=== PATIENT | female | born 1945 | race African-American/Black ===

== ENCOUNTER 2017-07-18 09:24 | Inpatient (IN) | payer OTHER, MEDICARE ==
[~2017-07-18] VITALS: Ht 160 cm; Wt 78.7 kg
[~2017-07-18 09:24] MED LIST: BENZ1INJ2 PO; COUM1TAB PO; HYDR-3288 PO; LITH300T3 PO; MILKSUS PO; RISP3 PO
[2017-07-18] MEDS ORDERED: BUSP1TAB PO ×2 (10:08)
[2017-07-18] MEDS ORDERED: ATOR10TA15 PO ×2 (10:08)
[2017-07-18] MEDS ORDERED: ASPI81CH7 CHEW ×2 (10:09)
[2017-07-18 10:28] VITALS: BP 142/75; RESP 18; O2SAT 100
[2017-07-18 10:35] VITALS: PULSE 66
[2017-07-18] MEDS ORDERED: DO NOT ADM ANY ANTICOAGULANT DRUGS PRN (10:45)
[2017-07-18 10:55] VITALS: PULSE 84
[2017-07-18] MEDS ORDERED: CHLORHEXIDINE GLUCONATE 2 % 1 PACK (2 CLOTHS) TOPICAL PRN (11:00)
[2017-07-18] MEDS ORDERED: POVIDONE IODINE 5% (ANTISEPSIS KIT) 4 APPLICATIONS EACH NARE PRN (11:00)
[2017-07-18] MEDS ORDERED: ROPIVACAINE PERI-ARTICULAR INJECTION. P-ARTICULR SCH ×5 (11:00)
[2017-07-18] MEDS ORDERED: CHLORHEXIDINE GLUCONATE 4% SOLN 120 ML BTL TOPICAL SCH (11:00)
[2017-07-18] MEDS ORDERED: METOPROLOL TARTRATE 25 MG TAB PO PRN (11:00)
[2017-07-18] MEDS ORDERED: ceFAZolin 1,000 MG/NS 100 ML IV SCH ×2 (11:00)
[2017-07-18] MEDS ORDERED: SODIUM CHLORID 0.9% 500 ML IV PRN (11:00)
[2017-07-18] MEDS ORDERED: LACTATED RINGER'S 1000 ML IV PRN (11:00)
--- NOTE | 2017-07-18 20:50 | EKG ---
Date Performed: 07/18/2017 Time Performed: 11:51:32 PTAGE: 72 years EKG: SINUS BRADYCARDIA NONSPECIFIC T-WAVE ABNORMALITY Compared to previous tracing, sinus rate i s slower BORDERLINE ECG PREVIOUS TRACING : 02/07/2004 18.32 DOCTOR: Darrell Thomas Interpretating Date/Time 07/18/2017 20:48:27
[2017-07-24] MEDS ORDERED: CALTCHW5 PO (10:26)
[2017-07-24] MEDS ORDERED: MAPA500T13 PO (10:26)
[2017-07-24] MEDS ORDERED: MULTTAB67 PO (10:26)
[2017-07-24] MEDS ORDERED: BENZ0.5T PO (10:26)
[2017-07-24] MEDS ORDERED: OMEP20TA93 PO (10:29)
[2017-07-24] MEDS ORDERED: FAMO20TA2 PO (10:31)
[2017-07-24] MEDS ORDERED: COUM7.5T PO (10:34)
== END 2017-07-18 12:20 | disposition home or self-care (01) | DRG 554 ==
LOC: HSDI 09:24
PROVIDERS: ADMIT Orthopaedic Surgery Orthopaedic Surgery of the Spine; ATTEND Orthopaedic Surgery Orthopaedic Surgery of the Spine
DX: M17.11 Unilateral primary osteoarthritis, right knee (principal); I49.9 Cardiac arrhythmia, unspecified; Z53.8 Procedure and treatment not carried out for other reasons
CPT/HCPCS: 86850; 86900; 86901; 86920; 93005; 99211; G0463; J0735; J1885; J2795; J7120

== ENCOUNTER 2017-07-18 12:43 | Observation (INO) | payer OTHER ==
[~2017-07-18] VITALS: Ht 162.6 cm; Wt 80.0 kg
[~2017-07-18 12:43] MED LIST changes: +ASPI81CH7 CHEW; +ATOR10TA15 PO; +BUSP1TAB PO
[2017-07-18 13:31] VITALS: BP 135/78; PULSE 72; RESP 18; TEMP 98.5; O2SAT 99
[2017-07-18 14:14] LABS: AUTOMATED NEUTROPHIL # 5.9 TH/MM3 (1.8-7.7); BASOPHIL # 0.1 TH/MM3 (0-0.2); BASOPHIL % 0.8 % (0.0-2.0); EOSINOPHIL # 0.1 TH/MM3 (0-0.4); EOSINOPHIL % 1.5 % (0.0-4.0); HEMATOCRIT 40.2 % (35.0-46.0); HEMOGLOBIN 12.9 GM/DL (11.6-15.3); LYMPH % 21.6 % (9.0-44.0); LYMPHOCYTE # 1.8 TH/MM3 (1.0-4.8); MEAN CORPUSCULAR HGB CONC 32.2 % (32.0-36.0); MEAN PLATELET VOLUME 7.8 FL (7.0-11.0); MONO % 6.9 % (0.0-8.0); MONOCYTE # 0.6 TH/MM3 (0-0.9); NEUT % 69.2 % (16.0-70.0); PLATELET COUNT 300 TH/MM3 (150-450); RED BLOOD COUNT 4.61 MIL/MM3 (4.00-5.30); WHITE BLOOD COUNT 8.5 TH/MM3 (4.0-11.0)
[2017-07-18 14:29] LABS: BICARBONATE 23.8 MEQ/L (21.0-32.0); BLOOD UREA NITROGEN 13 MG/DL (7-18); CALCIUM 9.7 MG/DL (8.5-10.1); CHLORIDE 113 MEQ/L (98-107); CREATININE 0.77 MG/DL (0.50-1.00); GLOMERULAR FILTRATION RATE 89 ML/MIN (>89); GLUCOSE,RANDOM 99 MG/DL (74-106); SODIUM (NA) 143 MEQ/L (136-145)
[2017-07-18 14:33] LABS: TROPONIN I LESS THAN 0.02 NG/ML (0.02-0.05)
--- NOTE | 2017-07-18 14:49 | RADRPT ---
EXAM DATE/TIME: 07/18/2017 14:01 [place] COMPARISON: No previous studies available for comparison. INDICATIONS : Tachycardia. MEDICAL HISTORY : None. SURGICAL HISTORY : None. ENCOUNTER: Initial ACUITY: 2 days PAIN SCORE: 3/10 LOCATION: Left middle chest FINDINGS: PA and lateral views of the chest demonstrate the lungs to be symmetrically aerated without evidence of mass or infiltrate. There is some blunting of the posterior costophrenic angle on the lateral sugg esting a small left-sided posterior effusion. Heart size is normal. Osseous structures are intact wit h mild marginal spurring at multiple levels of the dorsal spine. CONCLUSION: 1. Possible small posterior effusion in the left hemithorax. Lungs are otherwise clear. 2. Heart size is normal. No failure. 3. Minimal degenerative spurring of the dorsal spine. Richardson Royal MD on July 18, 2017 at 14:44 Board Certified Radiologist. This report was verified electronically.
[2017-07-18 14:59] VITALS: BP 148/80; PULSE 74; RESP 18; O2SAT 97
--- NOTE | 2017-07-18 15:35 | PD ---
HPI Chief Complaint: Cardiac Complaint Time Seen by Provider: 14:47 Travel History International Travel<30 days: No Contact w/Intl Traveler<30days: No Traveled to known affect area: No History of Present Illness HPI The patient is a 72-year-old female who presents to the emergency department for possible arrhythmia including ventricular tachycardia that occurred while in same-day surgery. The patient was scheduled to undergo surgery by Dr. Tristan Quesada, for chronic knee pain. Apparently the patient underwent some type of arrhythmia while speak in the anesthesiology. According to notes the anesthesiologist thought the patient was having ventricular tachycardia. The patient states she was asymptomatic at that time she had no lightheadedness, dizziness, chest pain, palpitations, shortness of breath, nausea, vomiting, or presyncope. She denies any known history of cardiac arrhythmias including atrial fibrillation and atrial flutter. She does have a history of psychiatric problems, hypertension, and hyperlipidemia. The patient is currently asymptomatic. PFSH Past Medical History Arthritis: Yes Anxiety: Yes Depression: No Cancer: No Cardiovascular Problems: Yes High Cholesterol: Yes Diabetes: No Diminished Hearing: No Endocrine: No Genitourinary: No Hepatitis: No Hiatal Hernia: No Immune Disorder: No Musculoskeletal: Yes (ARTHRITIS) Neurologic: No Psychiatric: Yes (PARANOID SCHIZOPHRENIA) Reproductive: No Respiratory: No Schizophrenia: Yes Thyroid Disease: No Tetanus Vaccination: > 5 Years Influenza Vaccination: Yes PNEUMOCCOCAL Vaccine (Year): 3 ?: Not Menopausal: Yes Para: 2 Past Surgical History Abdominal Surgery: No AICD: No Cardiac Surgery: No Section: Yes Ear Surgery: No Endocrine Surgery: No Eye Surgery: No Genitourinary Surgery: No Gynecologic Surgery: Yes (C SECTION X3) Joint Replacement: Yes (LEFT KNEE right tkr) Oral Surgery: No Pacemaker: No Thoracic Surgery: No Other Surgery: Yes Social History Alcohol Use: No Tobacco Use: No Substance Use: No Allergies-Medications (Allergen,Severity, Reaction): Coded Allergies: No Known Allergies (Verified Allergy, Unknown, 07/18/17) Reported Meds & Prescriptions Reported Meds & Active Scripts Active Reported Aspirin Children's (Aspirin) 81 Mg Chew 81 Mg CHEW DAILY Buspirone (Buspirone HCl) 7.5 Mg Tab 7.5 Mg PO BID Atorvastatin (Atorvastatin Calcium) 10 Mg Tab 10 Mg PO HS Benztropine Mesylate 2 Mg/2 Ml Vial 2 Mg PO BID [place] (Hydrocodone-Acetaminophen) 7.5-325 mg Tab 1-2 Tab PO Q6H PRN [place] Carbonate 300 Mg Tab 300 Mg PO BID Risperdal (Risperidone) 3 Mg Tab 3 Mg PO Q12HR Review of Systems Except as stated in HPI: all other systems reviewed are Neg HENT: No: Lightheadedness Cardiovascular: Positive: Tachycardia, No: Chest Pain or Discomfort, Diaphoresis Gastrointestinal: No: Nausea, Vomiting, Abdominal Pain Musculoskeletal: No: Weakness Neurologic: No: Dizziness, Syncope Physical Exam Narrative GENERAL: Awake, alert, very pleasant 72-year-old female who appears her stated age and is in no acute respiratory distress. SKIN: Focused skin assessment warm/dry. HEAD: Atraumatic. Normocephalic. EYES: No injection or drainage. ENT: No nasal bleeding or discharge. Mucous membranes pink and moist. NECK: Trachea midline. No JVD. CARDIOVASCULAR: Regular rate and rhythm. No murmur appreciated. RESPIRATORY: No accessory muscle use. Clear to auscultation. Breath sounds equal bilaterally. GASTROINTESTINAL: Abdomen soft, non-tender, nondistended. Hepatic and splenic margins not palpable. MUSCULOSKELETAL: No obvious deformities. No clubbing. No cyanosis. No edema. Mild resting tremor of the left hand at rest. Fasciculations of the left quadriceps noted intermittently. NEUROLOGICAL: Awake and alert. No obvious cranial nerve deficits. Motor grossly within normal limits. Normal speech. Nonfocal. PSYCHIATRIC: Appropriate mood and affect; insight and judgment normal. Data Data Last Documented VS Vital Signs Date Time Temp Pulse Resp B/P (MAP) Pulse Ox O2 Delivery O2 Flow Rate FiO2 07/18/17 14:59 74 18 148/80 (102) 97 Room Air 07/18/17 13:31 98.5 Orders Orders Electrocardiogram (07/18/17 ) Complete Blood Count With Diff (07/18/17 13:34) Basic Metabolic Panel (Bmp) (07/18/17 13:34) Ckmb (Isoenzyme) Profile (07/18/17 13:34) Troponin I (07/18/17 13:34) Chest, Pa & Lat (07/18/17 13:34) CKMB (07/18/17 13:44) CKMB% (07/18/17 13:44) Magnesium (Mg) (07/18/17 15:04) [place] (Li) (07/18/17 15:04) Labs Laboratory Tests Test 07/18/17 13:44 White Blood Count 8.5 TH/MM3 Red Blood Count 4.61 MIL/MM3 Hemoglobin 12.9 GM/DL Hematocrit 40.2 % Mean Corpuscular Volume 87.0 FL Mean Corpuscular Hemoglobin 28.0 PG Mean Corpuscular Hemoglobin Concent 32.2 % Red Cell Distribution Width 16.0 % Platelet Count 300 TH/MM3 Mean Platelet Volume 7.8 FL Neutrophils (%) (Auto) 69.2 % Lymphocytes (%) (Auto) 21.6 % Monocytes (%) (Auto) 6.9 % Eosinophils (%) (Auto) 1.5 % Basophils (%) (Auto) 0.8 % Neutrophils # (Auto) 5.9 TH/MM3 Lymphocytes # (Auto) 1.8 TH/MM3 Monocytes # (Auto) 0.6 TH/MM3 Eosinophils # (Auto) 0.1 TH/MM3 Basophils # (Auto) 0.1 TH/MM3 CBC Comment DIFF FINAL Differential Comment Blood Urea Nitrogen 13 MG/DL Creatinine 0.77 MG/DL Random Glucose 99 MG/DL Calcium Level 9.7 MG/DL Sodium Level 143 MEQ/L Potassium Level 3.9 MEQ/L Chloride Level 113 MEQ/L Carbon Dioxide Level 23.8 MEQ/L Anion Gap 6 MEQ/L Estimat Glomerular Filtration Rate 89 ML/MIN Total Creatine Kinase 114 U/L Creatine Kinase MB 2.4 NG/ML Troponin I LESS THAN 0.02 NG/ML MDM Medical Decision Making Medical Screen Exam Complete: Yes Emergency Medical Condition: Yes Medical Record Reviewed: Yes Interpretation(s) EKG reveals normal sinus rhythm with a rate of 66. Nonspecific T-wave changes. Last Impressions Chest X-Ray 07/18/17 [id number] Signed Impressions: Service Date/Time: July 14:01 - CONCLUSION: 1. Possible small posterior effusion in the left hemithorax. Lungs are otherwise clear. 2. Heart size is normal. No failure. 3. Minimal degenerative spurring of the dorsal spine. Richardson Royal MD Laboratory Tests Test 07/18/17 13:44 White Blood Count 8.5 TH/MM3 Red Blood Count 4.61 MIL/MM3 Hemoglobin 12.9 GM/DL Hematocrit 40.2 % Mean Corpuscular Volume 87.0 FL Mean Corpuscular Hemoglobin 28.0 PG Mean Corpuscular Hemoglobin Concent 32.2 % Red Cell Distribution Width 16.0 % Platelet Count 300 TH/MM3 Mean Platelet Volume 7.8 FL Neutrophils (%) (Auto) 69.2 % Lymphocytes (%) (Auto) 21.6 % Monocytes (%) (Auto) 6.9 % Eosinophils (%) (Auto) 1.5 % Basophils (%) (Auto) 0.8 % Neutrophils # (Auto) 5.9 TH/MM3 Lymphocytes # (Auto) 1.8 TH/MM3 Monocytes # (Auto) 0.6 TH/MM3 Eosinophils # (Auto) 0.1 TH/MM3 Basophils # (Auto) 0.1 TH/MM3 CBC Comment DIFF FINAL Differential Comment Blood Urea Nitrogen 13 MG/DL Creatinine 0.77 MG/DL Random Glucose 99 MG/DL Calcium Level 9.7 MG/DL Sodium Level 143 MEQ/L Potassium Level 3.9 MEQ/L Chloride Level 113 MEQ/L Carbon Dioxide Level 23.8 MEQ/L Anion Gap 6 MEQ/L Estimat Glomerular Filtration Rate 89 ML/MIN Total Creatine Kinase 114 U/L Creatine Kinase MB 2.4 NG/ML Troponin I LESS THAN 0.02 NG/ML Differential Diagnosis Differential diagnosis includes atrial fibrillation with aberrancy, intermittent bundle branch block, atrial flutter, ventricular arrhythmia, ventricular tachycardia, reentry tachycardia, electrolyte abnormality. Narrative Course IV was established, labs are drawn and sent, and the patient was placed on cardiac telemetry monitoring and continuous pulse oximetry monitoring. EKG was ordered and interpreted. I reviewed the patient's rhythm strip from same-day surgery, the patient's rate appeared to vary between 80 and 130, was irregular with no visible P waves. May have been A. fib with aberrancy, I do not believe it was ventricular tachycardia. I had a discussion with Dr. Tristan Bhatia, after discussion was agreed the patient will be a 23 hour observation to the medical service and may benefit from cardiology evaluation as she will need medical clearance for future knee surgery. Electrolytes are unremarkable. Magnesium was added to the patient's original labs as well as a lithium level. I did discussion with the patient and family at bedside was comfortable with this plan of care. Physician Communication Physician Communication [facility] were paged for 23 hour observation. I discussed the patient with Dr. Harris who agrees with 23 hour observation. Diagnosis Primary Impression: Dysrhythmia Qualified Codes: I49.9 - Cardiac arrhythmia, unspecified Admitting Information Admitting Physician Requests: Observation Condition: Stable Jak Pappas MD Jul 18, 2017 15:35
[2017-07-18] MEDS ORDERED: SODIUM CHLORIDE 0.9% FLUSH 10 ML FLUSH IV FLUSH PRN (15:45)
[2017-07-18] MEDS ORDERED: NALOXONE HCL 0.4 MG/ML AMP IV PUSH PRN (15:45)
[2017-07-18] MEDS ORDERED: ACETAMINOPHEN/HYDROcodone 325 MG/7.5 MG TAB PO PRN (16:30)
--- NOTE | 2017-07-18 16:35 | HHI.HP ---
HPI Service [facility] Hospital[facility] Primary Care Physician No Primary Care Physician Admission Diagnosis Dysrhythmia A. fib with aberrancy versus ventricular tachycardia Diagnoses: Chief Complaint: Dysrhythmia Travel History International Travel<30 Days: No Contact w/Intl Traveler <30 Da: No Traveled to Known Affected Are: No History of Present Illness This is a 72yo female with a PMHX of HTN (off of BP meds x 5 years), HLD, OA s/p bilateral TKA, GERD and paranoid schizophrenia who presents to [facility] ED with complaints of possible vtach arrhythmia that occurred while patient was being prepped by anesthesia for revision left total knee replacement to be performed today by Dr. Quesada. According to the notes, anesthesiologist was concerned patient was having ventricular tachycardia. Patient denies any complaints including no lightheadedness, dizziness, presyncope, palpitations, diaphoresis, chest pain, dyspnea, nausea or vomiting. Patient denies any cardiac history. She does report an episode of nonradicular left sided chest tightness one month ago after she laid down to sleep that she attributes to reflux. She fell approximately 3 months ago resulting in a patellar for which she was scheduled for the revision surgery today. In the ED, EKG showed possible atrial fibrillation with aberrancy. She did have a HR of 123 while in the ED. She denies any complaints. Review of Systems Except as stated in HPI: all other systems reviewed are Neg Past Family Social History Past Medical History Hypertension, off BP meds x 5 years Dyslipidemia OA Paranoid schizophrenia GERD Past Surgical History Bilateral TKA C section x 3 Reported Medications Aspirin Children's (Aspirin) 81 Mg Chew 81 Mg CHEW DAILY Buspirone (Buspirone HCl) 7.5 Mg Tab 7.5 Mg PO BID Atorvastatin (Atorvastatin Calcium) 10 Mg Tab 10 Mg PO HS Benztropine Mesylate 2 Mg/2 Ml Vial 2 Mg PO BID [place] (Hydrocodone-Acetaminophen) 7.5-325 mg Tab 1-2 Tab PO Q6H PRN [place] Carbonate 300 Mg Tab 300 Mg PO BID Risperdal (Risperidone) 3 Mg Tab 3 Mg PO Q12HR Allergies: Coded Allergies: No Known Allergies (Verified Allergy, Unknown, 07/18/17) Active Ordered Medications Current Medications Medications (Trade) Dose Ordered Sig/Evelyn Route Start Time Stop Time Status Last Admin (NS Flush) 2 ml UNSCH PRN IV FLUSH 07/18/17 15:45 (NS Flush) 2 ml BID IV FLUSH 07/18/17 21:00 (Narcan Inj) 0.4 mg UNSCH PRN IV PUSH 07/18/17 15:45 Family History Mother, pancreatic cancer Patient did not know her father Social History She denies any tobacco use history. She reports occasional EtOH consumption of 1-2 beers/month. She denies any illicit drug use. She lives with her daughter. Physical Exam Vital Signs Vital Signs Date Time Temp Pulse Resp B/P (MAP) Pulse Ox O2 Delivery O2 Flow Rate FiO2 07/18/17 14:59 74 18 148/80 (102) 97 Room Air 07/18/17 14:55 19 07/18/17 13:31 98.5 72 18 135/78 (97) 99 Physical Exam GENERAL: This is a well-nourished, well-developed elderly female patient, in no apparent distress. Awake and alert. Daughter is at the bedside. Tremulous. SKIN: No rashes, ecchymoses or lesions. Cool and dry. HEAD: Atraumatic. Normocephalic. No temporal or scalp tenderness. EYES: Pupils equal round and reactive. Extraocular motions intact. No scleral icterus. No injection or drainage. ENT: Nose without bleeding or purulent drainage. Throat without erythema, tonsillar hypertrophy or exudate. Uvula midline. Airway patent. NECK: Trachea midline. No JVD or lymphadenopathy. Supple, nontender, no meningeal signs. CARDIOVASCULAR: Regular rate and rhythm without murmurs, gallops, or rubs. RESPIRATORY: Clear to auscultation. Breath sounds equal bilaterally. No wheezes , rales, or rhonchi. GASTROINTESTINAL: Abdomen soft, non-tender, nondistended. No hepato-splenomegaly , or palpable masses. No guarding. MUSCULOSKELETAL: Extremities without clubbing, cyanosis, or edema. No joint tenderness, effusion, or edema noted. No calf tenderness. NEUROLOGICAL: Awake and alert. Cranial nerves II through XII grossly intact. Motor and sensory grossly within normal limits. No focal neurologic finding appreciated. Normal speech. Laboratory Laboratory Tests Test 07/18/17 13:44 White Blood Count 8.5 Red Blood Count 4.61 Hemoglobin 12.9 Hematocrit 40.2 Mean Corpuscular Volume 87.0 Mean Corpuscular Hemoglobin 28.0 Mean Corpuscular Hemoglobin Concent 32.2 Red Cell Distribution Width 16.0 Platelet Count 300 Mean Platelet Volume 7.8 Neutrophils (%) (Auto) 69.2 Lymphocytes (%) (Auto) 21.6 Monocytes (%) (Auto) 6.9 Eosinophils (%) (Auto) 1.5 Basophils (%) (Auto) 0.8 Neutrophils # (Auto) 5.9 Lymphocytes # (Auto) 1.8 Monocytes # (Auto) 0.6 Eosinophils # (Auto) 0.1 Basophils # (Auto) 0.1 CBC Comment DIFF FINAL Differential Comment Blood Urea Nitrogen 13 Creatinine 0.77 Random Glucose 99 Calcium Level 9.7 Sodium Level 143 Potassium Level 3.9 Chloride Level 113 Carbon Dioxide Level 23.8 Anion Gap 6 Estimat Glomerular Filtration Rate 89 Total Creatine Kinase 114 Creatine Kinase MB 2.4 Troponin I LESS THAN 0.02 Result Diagram: 07/18/17 1344 07/18/17 1344 Imaging Last Impressions Chest X-Ray 07/18/17 1334 Signed Impressions: Service Date/Time: July 14:01 - CONCLUSION: 1. Possible small posterior effusion in the left hemithorax. Lungs are otherwise clear. 2. Heart size is normal. No failure. 3. Minimal degenerative spurring of the dorsal spine. MD Pedrito Shawi VTE Risk Assessment Caprini VTE Risk Assessment: Mod/High Risk (score >= 2) Caprini Risk Assessment Model Point Value = 1 Point Value = 2 Point Value = 3 Point Value = 5 Age 41-60 Minor surgery BMI > 25 kg/m2 Swollen legs Varicose veins or History of unexplained or recurrent spontaneous Oral contraceptives or hormone replacement Sepsis (< 1 month) Serious lung disease, including pneumonia (< 1 month) Abnormal pulmonary function Acute myocardial infarction Congestive heart failure (< 1 month) History of inflammatory bowel disease Medical patient at bed rest Age 61-74 Arthroscopic surgery Major open surgery (> 45 min) Laparoscopic surgery (> 45 min) Malignancy Confined to bed (> 72 hours) Immobilizing plaster cast Central venous access Age >= 75 History of VTE Family history of VTE Factor V Leiden Prothrombin [id number] Lupus anticoagulant Anticardiolipin antibodies Elevated serum homocysteine Heparin-induced thrombocytopenia Other congenital or acquired thrombophilia Stroke (< 1 month) Elective arthroplasty Hip, pelvis, or leg fracture Acute spinal cord injury (< 1 month) Prophylaxis Regimen Total Risk Factor Score Risk Level Prophylaxis Regimen 0-1 Low Early ambulation 2 Moderate Order ONE of the following: *Sequential Compression Device (SCD) *Heparin 5000 units SQ BID 3-4 Higher Order ONE of the following medications: *Heparin 5000 units SQ TID *Enoxaparin/Lovenox 40 mg SQ daily (WT < 150 kg, CrCl > 30 mL/min) *Enoxaparin/Lovenox 30 mg SQ daily (WT < 150 kg, CrCl > 10-29 mL/min) *Enoxaparin/Lovenox 30 mg SQ BID (WT < 150 kg, CrCl > 30 mL/min) AND/OR *Sequential Compression Device (SCD) 5 or more Highest Order ONE of the following medications: *Heparin 5000 units SQ TID (Preferred with Epidurals) *Enoxaparin/Lovenox 40 mg SQ daily (WT < 150 kg, CrCl > 30 mL/min) *Enoxaparin/Lovenox 30 mg SQ daily (WT < 150 kg, CrCl > 10-29 mL/min) *Enoxaparin/Lovenox 30 mg SQ BID (WT < 150 kg, CrCl > 30 mL/min) AND *Sequential Compression Device (SCD) Assessment and Plan Assessment and Plan 72yo female with a PMHX of HTN (off of BP meds x 5 years), HLD , OA s/p bilateral TKA, GERD and paranoid schizophrenia who presents to [facility] ED with complaints of possible vtach arrhythmia that occurred while patient was being prepped by anesthesia for revision left total knee replacement to be performed today by Dr. Quesada. Arrhythmia, concern for Vtach, patient asymptomatic Possible PAF -K level 3.9, initial troponin 0.02 -Consult cardiology, appreciate recommendations -obtain 2D echocardiogram -continuous cardiac monitoring -obtain mag level and TSH level Hypertension Patient has not been on antihypertensive meds in 5 yrs -Clonidine prn with parameters -monitor BP and will initiate tx if indicated Dyslipidemia -resume home statin therapy OA s/p bilateral TKA with recent fall on the left knee and subsequent left patellar fracture Patient scheduled for revision Left TKA today -fall precautions -PT eval/tx Schizophrenia -resume home meds -check [place] level DVT prophylaxis -bilateral SCD/HOLLIE hose Discussed Condition With patient, daughter, Dr. Steven Baez,Meredith AMEZQUITA Jul 18, 2017 16:35
[2017-07-18] MEDS ORDERED: cloNIDine HCL 0.1 MG TAB PO PRN (16:45)
[2017-07-18 17:18] LABS: MAGNESIUM 2.4 MG/DL (1.5-2.5)
[2017-07-18 18:22] VITALS: BP 132/61; PULSE 65; RESP 18; O2SAT 99
--- NOTE | 2017-07-18 18:47 | ECHRPT ---
Indication: ATRIAL FIB/FLUTTER CONCLUSIONS Normal left ventricular size. Moderate concentric left ventricular hypertrophy. The left atrial size is mildly dilated. The right atrial size is mildly dilated. No atrial level shunt is demonstrated by color flow Doppler interrogation. The left ventricular systolic function is normal with an estimated ejection fraction in the range of 60-65%. [id number] mitral valve regurgitation. Aortic valve sclerosis is present. There is mild to moderate tricuspid valve regurgitation. The estimated pulmonary arterial pressure is 28 mmHg. Mild pulmonary valve regurgitation. There is a small pericardial effusion present. BP: 148 / 80 HR: 74 Rhythm: Sinus MEASUREMENTS (Male / Female) Normal Values Technical Quality:Fair 2D ECHO LV Diastolic Diameter PLAX 4.2 cm 4.2 - 5.9 / 3.9 - 5.3 cm LV Systolic Diameter PLAX 2.5 cm IVS Diastolic Thickness 1.1 cm 0.6 - 1.0 / 0.6 - 0.9 cm LVPW Diastolic Thickness 1.1 cm 0.6 - 1.0 / 0.6 - 0.9 cm LV Relative Wall Thickness 0.5 RV Internal Dim ED PLAX 2.9 cm LVOT Diameter 2.3 cm Aortic Root Diameter 3.3 cm LA Systolic Diameter LX 3.6 cm 3.0 - 4.0 / 2.7 - 3.8 cm M-MODE AV Cusp Separation MM 2.4 cm DOPPLER AV Peak Velocity 123.0 cm/s AV Peak Gradient 6.1 mmHg AV Mean Gradient 3.0 mmHg AV Velocity Time Integral 21.8 cm LVOT Peak Velocity 102.0 cm/s LVOT Peak Gradient 4.2 mmHg LVOT Velocity Time Integral 20.3 cm AV Area Cont Eq vti 3.9 cm AV Area Cont Eq pk 3.4 cm Mitral E Point Velocity 61.7 cm/s Mitral A Point Velocity 48.9 cm/s Mitral E to A Ratio 1.3 LV E' Lateral Velocity 9.9 cm/s Mitral E to LV E' Lateral Ratio 6.2 LV E' Septal Velocity 6.2 cm/s Mitral E to LV E' Septal Ratio 9.9 TR Peak Velocity 211.0 cm/s TR Peak Gradient 17.8 mmHg Right Atrial Pressure 10.0 mmHg Pulmonary Artery Systolic Pressu 27.8 mmHg Right Ventricular Systolic Press 27.8 mmHg PV Peak Velocity 69.2 cm/s PV Peak Gradient 1.9 mmHg FINDINGS LEFT VENTRICLE Normal left ventricular size. Moderate concentric left ventricular hypertrophy. The left ventricular systolic function is normal with an estimated ejection fraction in the range of 60-65%. RIGHT VENTRICLE Normal right ventricular size and systolic function. LEFT ATRIUM The left atrial size is mildly dilated. RIGHT ATRIUM The right atrial size is mildly dilated. ATRIAL SEPTUM No atrial level shunt is demonstrated by color flow Doppler interrogation. AORTA The aortic root and proximal ascending aorta are normal in size on limited imaging. MITRAL VALVE [id number] mitral valve regurgitation. AORTIC VALVE Aortic valve sclerosis is present. TRICUSPID VALVE There is mild to moderate tricuspid valve regurgitation. The estimated pulmonary arterial pressure is 28 mmHg. PULMONARY VALVE Mild pulmonary valve regurgitation. VESSELS The inferior vena cava is normal in size. PERICARDIUM There is a small pericardial effusion present. Sandor Fowler MD, FACC (Electronically Signed) Final Date:18 July 2017 18:46
[2017-07-18 19:17] VITALS: BP 152/74; PULSE 66; RESP 18; TEMP 98.1; O2SAT 98
[2017-07-18 20:48] VITALS: BP 116/57; PULSE 78; RESP 16; TEMP 98; O2SAT 98
--- NOTE | 2017-07-18 20:50 | EKG ---
Date Performed: 07/18/2017 Time Performed: 13:48:08 PTAGE: 72 years EKG: Sinus rhythm NONSPECIFIC T-WAVE ABNORMALITY Compared to previous tracing, sinus rate is slightly faster BORDERLIN E ECG PREVIOUS TRACING : 07/18/2017 11.51 DOCTOR: Darrell Thomas Interpretating Date/Time 07/18/2017 20:48:45
[2017-07-18] MEDS ORDERED: ATORVASTATIN 10 MG TAB PO SCH (21:00)
[2017-07-18] MEDS: busPIRone HCL 5 MG TAB PO SCH (21:00)
[2017-07-18] MEDS: SODIUM CHLORIDE 0.9% FLUSH 10 ML FLUSH IV FLUSH SCH (21:07)
[2017-07-18] MEDS: risperiDONE 3 MG TAB PO SCH (22:50)
[2017-07-18] MEDS: BENZTROPINE MESYLATE 2 MG TAB PO SCH (22:50)
[2017-07-18] MEDS: LITHIUM CARBONATE 300 MG TAB PO SCH (22:51)
[2017-07-19] VITALS: BP 96/58; PULSE 69; RESP 17; TEMP 98.6; O2SAT 100
[2017-07-19 02:03] VITALS: PULSE 61
[2017-07-19 04:00] VITALS: BP 116/62; PULSE 74; RESP 17; TEMP 96.9; O2SAT 100
--- NOTE | 2017-07-19 08:40 | MB ---
cc: Mathieu Aguayo MD DATE: 07/18/2017 REASON FOR CONSULTATION: Evaluation of an arrhythmia. HISTORY OF PRESENT ILLNESS: This is a 72-year-old female who was due to have orthopedic surgery today and, on telemetry, had an arrhythmia. I have looked at it. This occurred at 10:45 a.m. It is a 10-beat run of accelerated idioventricular rhythm. The rate is about 80-90. She was asymptomatic. Surgery was canceled. She was brought over here. The patient had hypertension in the past and was on blood pressure meds. She has not required any blood pressure medicines and has been off medicines for 5 years. No known cardiac disease. She has acid reflux with intermittent symptoms from that which she has a hard time describing. Her daughter who is a nurse was at the bedside which was helpful in obtaining her history. The patient has a history of psychiatric disorder. I cannot get any clear history of angina from her. PAST MEDICAL HISTORY: Includes hypertension, dyslipidemia, arthritis, schizophrenia, acid reflux. PAST SURGICAL HISTORY: Includes bilateral TKA and C-sections. MEDICATIONS: List is charted and includes 1. [place] 300 mg b.i.d. 2. Aspirin. 3. BuSpar. 4. Atorvastatin. 5. Risperdal. ALLERGIES: NONE. FAMILY HISTORY: Her mom had pancreatic cancer. She does not know her father's history. SOCIAL HISTORY: She is a nonsmoker, only occasional alcohol. PHYSICAL EXAMINATION: GENERAL: Shows an overweight, pleasant female. She is awake and alert. VITAL SIGNS: Charted. HEENT: Unremarkable. NECK: No JVD or bruits. CHEST: Clear to auscultation. CARDIAC: S1, S2. Regular rate and rhythm. No murmurs, gallops. ABDOMEN: Soft, nontender, no masses or organomegaly. EXTREMITIES: No clubbing, cyanosis or edema. Peripheral pulses are intact. CARDIOLOGY STUDIES: Her echo shows moderate LVH, normal LV function, mildly dilated left atrium. CARDIOLOGY STUDIES: Her EKG demonstrates sinus rhythm. She has 2 tracings, 1 at 11:51 and 1 at 1348. She has some nonspecific lateral ST-T abnormality which would be consistent with her left ventricular hypertrophy. LABORATORY DATA: Troponins are negative. IMPRESSION: Accelerated idioventricular rhythm, most likely secondary to her left ventricular hypertrophy. She is asymptomatic. No specific treatment is required. We will check a nuclear stress test to make sure there is no ischemic basis for this arrhythmia so I will order a Lexiscan nuclear test tomorrow. I will follow up on a p.r.n. basis if the test is abnormal. Thank you for asking me to see this pleasant lady. MD WES Mancilla/ , 07:21 PM , 08:15 PM
[2017-07-19] MEDS ORDERED: PNEUMOCOCCAL POLYVALENT INJ 25 MCG/0.5 ML SYR IM ONE (09:00)
[2017-07-19] MEDS: busPIRone HCL 5 MG TAB PO SCH (09:00)
[2017-07-19] MEDS ORDERED: ASPIRIN 81 MG CHEW TAB CHEW SCH (09:00)
[2017-07-19] MEDS ORDERED: REGADENOSON INJ 0.4 MG/5 ML SYR ONE (11:11)
[2017-07-19] MEDS: BENZTROPINE MESYLATE 2 MG TAB PO SCH (12:22)
[2017-07-19] MEDS: LITHIUM CARBONATE 300 MG TAB PO SCH (12:23)
[2017-07-19] MEDS: risperiDONE 3 MG TAB PO SCH (12:24)
[2017-07-19] MEDS: SODIUM CHLORIDE 0.9% FLUSH 10 ML FLUSH IV FLUSH SCH (12:24)
--- NOTE | 2017-07-19 12:57 | RADRPT ---
EXAM DATE/TIME: 07/18/2017 23:27 [facility] COMPARISON: CHEST PA & LAT, July 18, 2017, 14:01. INDICATIONS : Coronary atherosclerosis. DOSE: 27.2 mCi Tc99m Myoview at stress. 8.2 mCi Tc99m Myoview at rest. 0.4 mg Lexiscan STRESS SYMPTOMS: None. EJECTION FRACTION: > 70% MEDICAL HISTORY : Hypertension. SURGICAL HISTORY : Total knee replacement, left. Total knee replacement, right. section. ENCOUNTER: Initial ACUITY: 1 day PAIN SCALE: 0/10 LOCATION: chest TECHNIQUE: The patient underwent pharmacologic stress with infusion of prescribed dose. Continuous ECG tracing was monitored during stress. Gated SPECT imaging was performed after stress and conventional SPECT i maging was performed at rest. The examination was performed on a SPECT/CT scanner, both attenuation and non-corrected datasets were reviewed. FINDINGS: DISTRIBUTION: The maximum perfused segment at stress is in the lateral wall. PERFUSION STUDY: There some variation in uptake between stress and rest images at the apical lateral wall which is wit hin 10-20% which is generally within excepted limits. A definite area of ischemia is not appreciated. GATED STUDY: There is intact wall motion and thickening without hypokinetic or dyskinetic segments. CONCLUSION: No definite areas of ischemia are seen. RISK CATEGORY: Low (<1% Annual Mortality Rate) Sergei Ferrari MD on July 19, 2017 at 12:50 Board Certified Radiologist. This report was verified electronically.
--- NOTE | 2017-07-19 13:28 | HHI.DCPOC ---
Discharge Care Plan Diagnosis: (1) Paranoid schizophrenia (2) Hyperlipidemia (3) Dysrhythmia (4) Osteoarthritis of right knee Goals to Promote Your Health * To prevent worsening of your condition and complications * To maintain your health at the optimal level Directions to Meet Your Goals Take your medications as prescribed Follow your dietary instruction Follow activity as directed Keep your appointments as scheduled Take your immunizations and boosters as scheduled If your symptoms worsen call your PCP, if no PCP go to Urgent Care Center or Emergency Room Smoking is Dangerous to Your Health. Avoid second hand smoke Call the 24-hour hour crisis hotline for domestic abuse at Ant Miller MD Jul 19, 2017 13:28
--- NOTE | 2017-07-19 13:40 | HHI.DS ---
Discharge Summary Admission Date Jul 18, 2017 at 15:40 Discharge Date: Jul 19, 2017 Admitting Diagnosis Dysrhythmia A. fib with aberrancy versus ventricular tachycardia (1) Osteoarthritis of right knee ICD Code: M17.9 - Osteoarthritis of right knee Diagnosis: Secondary Status: Acute (2) Accelerated idioventricular rhythm ICD Code: I44.2 - Atrioventricular block, complete Diagnosis: Principal Status: Resolved (3) Paranoid schizophrenia ICD Code: F20.0 - Paranoid schizophrenia Diagnosis: Secondary Status: Chronic (4) Hyperlipidemia ICD Code: E78.5 - Hyperlipidemia Diagnosis: Secondary Status: Chronic Procedures none Brief History - From Admission This is a 72yo female with a PMHX of HTN (off of BP meds x 5 years), HLD, OA s/p bilateral TKA, GERD and paranoid schizophrenia who presents to [facility] ED with complaints of possible vtach arrhythmia that occurred while patient was being prepped by anesthesia for revision left total knee replacement to be performed today by Dr. Quesada. According to the notes, anesthesiologist was concerned patient was having ventricular tachycardia. Patient denies any complaints including no lightheadedness, dizziness, presyncope, palpitations, diaphoresis, chest pain, dyspnea, nausea or vomiting. Patient denies any cardiac history. She does report an episode of nonradicular left sided chest tightness one month ago after she laid down to sleep that she attributes to reflux. She fell approximately 3 months ago resulting in a patellar for which she was scheduled for the revision surgery today. In the ED, EKG showed possible atrial fibrillation with aberrancy. She did have a HR of 123 while in the ED. She denies any complaints. CBC/BMP: 07/18/17 1344 07/18/17 1344 Significant Findings Laboratory Tests Test 07/18/17 13:44 07/18/17 18:22 Chloride Level 113 MEQ/L (98-107) Troponin I LESS THAN 0.02 NG/ML LESS THAN 0.02 NG/ML Thyroid Stimulating Hormone 3rd Gen 4.550 uIU/ML (0.358-3.740) Imaging Last Impressions Myocardial Perfusion Scan Nuc Med 07/19/17 0000 Signed Impressions: Service Date/Time: July 23:27 - CONCLUSION: No definite areas of ischemia are seen. RISK CATEGORY: Low (<1%% Annual Mortality Rate ) Sergei Ferrari MD Chest X-Ray 07/18/17 1334 Signed Impressions: Service Date/Time: July 14:01 - CONCLUSION: 1. Possible small posterior effusion in the left hemithorax. Lungs are otherwise clear. 2. Heart size is normal. No failure. 3. Minimal degenerative spurring of the dorsal spine. Richardson Royal MD PE at Discharge AAOx3 nad S1S2 RRR, no MRG abdomen soft, nt, nd no edema in lower extremities, no jvd Pt update on day of discharge The patient denies chest pain, palpitations or shortness of breath. Hospital Course The patient was placed on outpatient observation for monitoring. Monitor on telemetry without any further arrhythmias reported. The patient was seen in consultation by cardiology. also recommended a nuclear stress testing which was negative. Electrolytes were also obtained and were within normal range with magnesium of 2.4 and potassium 3.9. Will go with 20 mg of potassium today. Patient will be discharged to follow-up with his PCP and is cleared to have surgical procedure afterwards. Pt Condition on Discharge: Stable Discharge Disposition: Discharge Home Discharge Time: <= 30 minutes Discharge Instructions DIET: Follow Instructions for: Heart Healthy Diet Activities you can perform: Regular-No Restrictions Follow up Referrals: PCP Follow-up - 2 Weeks Continued Medications: Aspirin (Aspirin Children's) 81 Mg Chew 81 MG CHEW DAILY, TAB 0 Refills Atorvastatin (Atorvastatin) 10 Mg Tab 10 MG PO HS for Cholesterol Management, #30 TAB 0 Refills Benztropine Mesylate (Benztropine Mesylate) 2 Mg/2 Ml Vial 2 MG PO BID Buspirone (Buspirone) 7.5 Mg Tab 7.5 MG PO BID for Anxiety, TAB 0 Refills Hydrocodone-Acetaminophen ([place]) 7.5-325 mg Tab 1-2 TAB PO Q6H PRN for PAIN, TAB 0 Refills [place] Carbonate ([place] Carbonate) 300 Mg Tab 300 MG PO BID, TAB 0 Refills Risperidone (Risperdal) 3 Mg Tab 3 MG PO Q12HR, #60 TAB 0 Refills Ant Miller MD Jul 19, 2017 13:40
[2017-07-19] MEDS ORDERED: POTASSIUM CHLORIDE 20 MEQ CONTROLLED RELEASE TAB PO ONE (14:00)
[2017-07-24] MEDS ORDERED: BENZ0.5T PO (10:26)
[2017-07-24] MEDS ORDERED: CALTCHW5 PO (10:26)
[2017-07-24] MEDS ORDERED: MULTTAB67 PO (10:26)
[2017-07-24] MEDS ORDERED: MAPA500T13 PO (10:26)
[2017-07-24] MEDS ORDERED: OMEP20TA93 PO (10:29)
[2017-07-24] MEDS ORDERED: FAMO20TA2 PO (10:31)
[2017-07-24] MEDS ORDERED: COUM7.5T PO (10:34)
== END 2017-07-19 15:10 | disposition home or self-care (01) ==
LOC: NEPE 12:43 → NEDA 15:40 → NEPGCP 18:21
PROVIDERS: ADMIT Hospitalist; ATTEND Hospitalist
DX: I49.9 Cardiac arrhythmia, unspecified (principal); M17.11 Unilateral primary osteoarthritis, right knee; F20.0 Paranoid schizophrenia; E78.5 Hyperlipidemia, unspecified; R94.31 Abnormal electrocardiogram [ECG] [EKG]; I11.9 Hypertensive heart disease without heart failure; I51.7 Cardiomegaly; K21.9 Gastro-esophageal reflux disease without esophagitis; Z23 Encounter for immunization; Z53.8 Procedure and treatment not carried out for other reasons
CPT/HCPCS: 71046; 78452; 80048; 80178; 82550; 82552; 83735; 84443; 84484; 85025; 90732; 93005; 93017; 93306; 97162; 99285; A9502; G0009; G0378; G8987; G8988; J2785; 86850; 86900; 86901; 86920; 90471; 99211; G0463; J0735; J1885; J2795; J7120

== ENCOUNTER 2017-07-25 11:23 | Inpatient (IN) | payer OTHER, MEDICARE ==
[~2017-07-25] VITALS: Ht 161.3 cm; Wt 76.7 kg
[~2017-07-25 11:23] MED LIST changes: +BENZ0.5T PO; -BENZ1INJ2 PO; -BUSP1TAB PO; +CALTCHW5 PO; -COUM1TAB PO; +COUM7.5T PO; +DEXAMETHASONE SOD PHOS 4 MG/ML VIAL IV ONE; +FAMO20TA2 PO; +GLYCOPYRROLATE 1 MG/5 ML SYRINGE IV PUSH ONE; -HYDR-3288 PO; +KETOROLAC TROMETHAMINE 30 MG/ML (IVP) VIAL IV PUSH ONE; +LACTATED RINGER'S 1000 ML INJ 1,000 ML IV ONE; +LIDOCAINE HCL 1% PF 5 ML SYRINGE OTHER ONE; +MAPA500T13 PO; -MILKSUS PO; +MULTTAB67 PO; +NEOSTIGMINE 5 MG/5 ML SYRINGE IV PUSH ONE; +ONDANSETRON HCL 4 MG/2 ML VIAL IV ONE; +PROPOFOL 200 MG/20 ML AMP IV ONE; +ROCURONIUM INJ 50 MG/5 ML SYRINGE IV PUSH ONE; +ePHEDrine/NS 25 MG/5 ML SYRINGE IV ONE
[2017-07-25] MEDS ORDERED: CEFAZOLIN INJ 2,000 MG in SODIUM CHLORIDE 0.9% INJ 100 ML IV SCH (11:45)
[2017-07-25] MEDS ORDERED: VANCOMYCIN 1000 MG/NS 250 ML (for <70 kg) IV SCH ×2 (11:45)
[2017-07-25] MEDS ORDERED: CHLORHEXIDINE GLUCONATE 4% SOLN 120 ML BTL TOPICAL SCH (11:45)
[2017-07-25] MEDS ORDERED: ceFAZolin 2 GM/DEX PREMIX 50 ML IV SCH (12:00)
[2017-07-25] MEDS ORDERED: ROPIVACAINE PERI-ARTICULAR INJECTION. P-ARTICULR SCH ×5 (12:00)
[2017-07-25] MEDS ORDERED: POVIDONE IODINE 5% (ANTISEPSIS KIT) 4 APPLICATIONS EACH NARE PRN (12:15)
[2017-07-25] MEDS ORDERED: METOPROLOL TARTRATE 25 MG TAB PO PRN (12:15)
[2017-07-25] MEDS ORDERED: LACTATED RINGER'S 1000 ML IV PRN (12:15)
[2017-07-25] MEDS ORDERED: CHLORHEXIDINE GLUCONATE 2 % 1 PACK (2 CLOTHS) TOPICAL PRN (12:15)
[2017-07-25] MEDS ORDERED: SODIUM CHLORID 0.9% 500 ML IV PRN (12:15)
[2017-07-25 13:05] VITALS: PULSE 66
[2017-07-25] MEDS ORDERED: GENTAMICIN SULFATE 80 MG/2 ML VIAL ONE ×3 (13:12→16:12)
[2017-07-25] MEDS ORDERED: FAMOTIDINE 20 MG/2 ML VIAL ONE (13:24)
[2017-07-25] MEDS ORDERED: BUPIVACAINE LIPOSOME PF 1.3% 20 ML VIAL ONE (13:58)
[2017-07-25] MEDS ORDERED: ACETAMINOPHEN 1000 MG/100 ML 100 ML IV ONE ×2 (13:59→15:28)
[2017-07-25] MEDS ORDERED: FAMOTIDINE 20 MG/2 ML VIAL IV ONE (14:30)
[2017-07-25] MEDS ORDERED: MIDAZOLAM HCL 2 MG/2 ML VIAL IV ONE (14:30)
[2017-07-25] MEDS ORDERED: SUGAMMADEX SODIUM 200 MG/2 ML VIAL IV PUSH ONE (17:05)
--- NOTE | 2017-07-25 17:20 | HHI.PR ---
Immediate Post Op Note Procedure Date: Jul 25, 2017 Pre Op Diagnosis: L Failed TKR Post Op Diagnosis: Same Surgeon: Tristan Quesada MD Public Health Technologist(s): Staff Procedure: L Rev TKR Complications: None Estimated blood loss: < 20cc Anesthesia: General, Regional Block, Local Drains: Hemovac Tourniquet time (min at mmHg) 26 min at 250 mmHg Patient to: PACU Patient Condition: Good Implant/Devices: SEE IMPLANT LOG (if applicable) Date/Time of Procedure: SEE SURGICAL CARE RECORD Tristan Quesada MD Jul 25, 2017 17:20
[2017-07-25] MEDS ORDERED: WALKER WHEELS/F1 MIS (17:28)
[2017-07-25] MEDS ORDERED: ACETAMINOPHEN/HYDROcodone 325 MG/5 MG TAB PO PRN (17:30)
[2017-07-25] MEDS ORDERED: FAMOTIDINE 20 MG TAB PO PRN (17:30)
[2017-07-25] MEDS ORDERED: Post-op Orders (for Pharmacy) XX ONE (17:30)
[2017-07-25] MEDS ORDERED: ONDANSETRON HCL 4 MG/2 ML VIAL IVP PRN (17:30)
[2017-07-25] MEDS ORDERED: ZOLPIDEM TARTRATE 5 MG TAB PO PRN (17:30)
--- NOTE | 2017-07-25 18:16 | MP ---
cc: Tristan Quesada MD, Albert W MD DATE OF OPERATION: 07/25/2017 PREOPERATIVE DIAGNOSES: Left failed total knee arthroplasty. POSTOPERATIVE DIAGNOSIS: Left failed total knee arthroplasty. PROCEDURE PERFORMED: Left revision total knee arthroplasty. SURGEON: Tristan Quesada MD ASSISTANT BRANCH MANAGER: Staff. ANESTHESIA: General, regional adductor canal block, intraarticular regional block. DRAINS: One. TOURNIQUET TIME: 26 minutes at 250 mmHg. COMPLICATIONS: None. PROCEDURE IN DETAIL: The patient was brought into the operating room and had satisfactory anesthesia by the Department of Anesthesia. Left lower extremity was prepped and draped in usual sterile manner. The extremity was exsanguinated by elevation and tourniquet inflated to 250 mmHg. Anterior scar tissue was surgically excised. Paramedian exposure was made. Capsulotomy was performed. The patient was found to have a failed polyethylene plastic component. The patient did have a traumatic injury to the knee, which certainly would explain why the patient had a failure of her polyethylene plastic. The patient was found to have no evidence of any wear involving the metal. There was no metal debris within to the knee joint itself. A synovectomy was performed. Soft tissues were released. The clipping mechanism was removed from the polyethylene plastic. The plastic was removed without difficulty. Trial reduction was made with the 14 and was found to be stable and satisfactory. The knee was then irrigated with local anesthesia provided by the Department of Pharmacy. The knee was irrigated with 3000 mL of sterile saline antibiotic solution. A 14 x 71 polyethylene plastic " lipped" was inserted. All soft tissue interposition was removed. Appropriate locking mechanism was used to lock the polyethylene plastic to the tibial tray. Tourniquet was deflated. All bleeders were then coagulated. The wound was again irrigated with copious amounts of irrigation solution. The wound was closed over an 1/8" Hemovac drain. The wound was closed in a routine manner. The extensor mechanism and capsule were repaired with multiple interrupted #2 nylon sutures. Subcutaneous layers with 0 Vicryl and 2-0 Vicryl, skin was approximated with running subcuticular 2-0 nylon suture. The instrument, sponge and sharp count was correct at the end of the operation. The patient tolerated the procedure well and went to the recovery room in stable and satisfactory condition. MD AIMEE StarrG/SA/ , 05:15 PM , 05:[address] [facility]
[2017-07-25] MEDS ORDERED: *ONDANSETRON 4 MG VIAL PERIprocedural Use ONLY ONE (18:19)
--- NOTE | 2017-07-25 18:27 | RADRPT ---
EXAM DATE/TIME: 07/25/2017 18:49 [facility] COMPARISON: No previous studies available for comparison. INDICATIONS : Post op total left knee. MEDICAL HISTORY : None. SURGICAL HISTORY : Left total knee ENCOUNTER: Initial ACUITY: 1 day PAIN SCORE: 0/10 LOCATION: Left knee FINDINGS: Left total knee arthroplasty is noted. Hardware appears intact. Alignment is anatomic. A surgical eyal in is present. In murali are noted ventrally. CONCLUSION: Satisfactory postop appearance Sergei Alfred MD on July 25, 2017 at 18:25 Board Certified Radiologist. This report was verified electronically.
[2017-07-25] MEDS: LACTATED RINGER'S 1000 ML INJ 1,000 ML IV SCH (19:00)
[2017-07-25] MEDS ORDERED: MORPHINE SULFATE 4 MG/ML INJ IV PRN (19:15)
[2017-07-25] MEDS ORDERED: DO NOT ADM ANY ANTICOAGULANT DRUGS PRN (19:15)
[2017-07-25 20:00] VITALS: BP 138/75; PULSE 72; RESP 18; TEMP 97.7; O2SAT 98
[2017-07-25] MEDS: risperiDONE 3 MG TAB PO SCH (23:05)
[2017-07-25] MEDS: LITHIUM CARBONATE 300 MG TAB PO SCH (23:06)
[2017-07-25] MEDS: ATORVASTATIN 10 MG TAB PO SCH (23:06)
[2017-07-25] MEDS: BENZTROPINE MESYLATE 1 MG TAB PO SCH (23:06)
[2017-07-25] MEDS: ACETAMINOPHEN/HYDROcodone 325 MG/5 MG TAB PO PRN (23:07)
[2017-07-26] VITALS: BP 131/71; PULSE 82; RESP 18; TEMP 98; O2SAT 96
[2017-07-26 04:00] VITALS: BP 110/65; PULSE 90; RESP 18; TEMP 98.1; O2SAT 95
[2017-07-26 05:08] LABS: INTERNATIONAL NORMALIZED RATIO 1.1 RATIO; PROTHROMBIN TIME - PATIENT 11.6 SEC (9.8-11.6)
[2017-07-26 05:10] LABS: BASOPHIL % 0.1 % (0.0-2.0); HEMATOCRIT 33.2 % (35.0-46.0); HEMOGLOBIN 10.6 GM/DL (11.6-15.3); LYMPH % 5.8 % (9.0-44.0); LYMPHOCYTE # 0.5 TH/MM3 (1.0-4.8); MEAN CORPUSCULAR HEMOGLOBIN 27.5 PG (27.0-34.0); MEAN CORPUSCULAR HGB CONC 31.9 % (32.0-36.0); MEAN PLATELET VOLUME 7.9 FL (7.0-11.0); MONOCYTE # 0.4 TH/MM3 (0-0.9); NEUT % 90.1 % (16.0-70.0); PLATELET COUNT 252 TH/MM3 (150-450); RED BLOOD COUNT 3.87 MIL/MM3 (4.00-5.30); RED CELL DISTRIBUTION WIDTH 15.5 % (11.6-17.2); WHITE BLOOD COUNT 8.9 TH/MM3 (4.0-11.0)
[2017-07-26 05:15] LABS: ALBUMIN 3.1 GM/DL (3.4-5.0); ALT (GPT) 19 U/L (10-53); AST (GOT) 12 U/L (15-37); BICARBONATE 22.3 MEQ/L (21.0-32.0); BLOOD UREA NITROGEN 15 MG/DL (7-18); CALCIUM 8.7 MG/DL (8.5-10.1); CHLORIDE 113 MEQ/L (98-107); CREATININE 0.95 MG/DL (0.50-1.00); GLOMERULAR FILTRATION RATE 70 ML/MIN (>89); GLUCOSE,RANDOM 111 MG/DL (74-106); MAGNESIUM 2.2 MG/DL (1.5-2.5); PHOSPHORUS 3.1 MG/DL (2.5-4.9); SODIUM (NA) 143 MEQ/L (136-145)
[2017-07-26 05:23] LABS: ALKALINE PHOSPHATASE 72 U/L (45-117); FREE T4 0.84 NG/DL (0.76-1.46); TOTAL BILIRUBIN ADULT 0.3 MG/DL (0.2-1.0); TOTAL PROTEIN 6.3 GM/DL (6.4-8.2)
[2017-07-26] MEDS: LACTATED RINGER'S 1000 ML INJ 1,000 ML IV SCH ×2 (06:30→19:00)
--- NOTE | 2017-07-26 07:11 | PD.ORT.PN ---
Subjective Subjective Remarks pt has post op left knee pain otherwise doing fine, bit of sore throat Objective Vitals Vital Signs Date Time Temp Pulse Resp B/P (MAP) Pulse Ox O2 Delivery O2 Flow Rate FiO2 07/26/17 04:00 98.1 90 18 110/65 (80) 95 07/26/17 00:00 98.0 82 18 131/71 (91) 96 07/25/17 20:00 97.7 72 18 138/75 (96) 98 07/25/17 19:45 67 20 121/71 (88) 100 Nasal Cannula 2 07/25/17 19:15 70 20 124/78 (93) 100 Nasal Cannula 2 07/25/17 18:15 71 20 136/73 (94) 100 Nasal Cannula 2 07/25/17 18:00 69 20 138/70 (92) 100 Nasal Cannula 2 07/25/17 17:45 71 20 140/76 (97) 100 Nasal Cannula 2 07/25/17 17:30 76 20 136/75 (95) 100 Nasal Cannula 2 07/25/17 17:18 97.5 91 20 137/70 (92) 95 Nasal Cannula 2 07/25/17 13:05 66 07/25/17 13:05 100 Nasal Cannula 2 07/25/17 12:33 98.0 68 20 127/74 (91) 96 I/O 07/25/17 07/25/17 07/25/17 07/26/17 07/26/17 07/26/17 07:00 15:00 23:00 07:00 15:00 23:00 Intake Total 1000 ml 240 ml Output Total 20 ml Balance 980 ml 240 ml Intake Oral 240 ml Other 1000 ml Output Estimated Blood Loss 20 ml # Voids 2 # Bowel Movements 0 Result Diagram: 07/26/17 0405 07/26/17 0405 Other Results Laboratory Tests Test 07/26/17 04:05 Prothromb Time International Ratio 1.1 RATIO Prothrombin Time 11.6 SEC (9.8-11.6) Imaging Last 24 hours Impressions Knee X-Ray 07/25/17 1721 Signed Impressions: Service Date/Time: July 18:49 - CONCLUSION: Satisfactory postop appearance Sergei Alfred MD Objective Remarks left knee dressing dry and intact canvas knee splint in place +NVI no calf tenderness Assessment & Plan Assessment and Plan POD # 1 s/p L rev TKA- poly exchange PT-WBAT low dose coumadin for dvt prop, order for sliding scale in physical chart rx for coumadin 5 mg in chart, look at INR on discharge to make sure appropriate dosage patient was requesting tylenol last night for pain instead of norco, putting order for tylenol also requesting miralax and dulcolax suppository anticipate discharge to SNF Saturday if orthopedically stable Jimena Hernández Jul 26, 2017 07:11
[2017-07-26] MEDS ORDERED: POLYETHYLENE GLYCOL POWDER 255 GM BTL PO PRN (07:15)
[2017-07-26] MEDS ORDERED: BISACODYL 10 MG SUPP RECTAL PRN (07:15)
[2017-07-26] MEDS ORDERED: NORC5TAB PO (07:16)
[2017-07-26] MEDS ORDERED: COUM5TAB PO (07:17)
[2017-07-26] MEDS ORDERED: POLYETHYLENE GLYCOL 17 GM PKG PO PRN (07:45)
[2017-07-26 08:00] VITALS: BP 120/66; PULSE 62; RESP 16; TEMP 97.9; O2SAT 96
[2017-07-26] MEDS: BENZTROPINE MESYLATE 1 MG TAB PO SCH ×2 (09:18→20:03)
[2017-07-26] MEDS: risperiDONE 3 MG TAB PO SCH ×2 (09:18→20:03)
[2017-07-26] MEDS: ALUMINUM/MAGNESIUM/SIMETH 30 ML CUP PO PRN ×2 (09:18→22:18)
[2017-07-26] MEDS: LITHIUM CARBONATE 300 MG TAB PO SCH ×2 (09:18→20:03)
[2017-07-26 12:00] VITALS: BP 102/60; PULSE 72; RESP 16; TEMP 98; O2SAT 100
--- NOTE | 2017-07-26 12:21 | PD.CONS ---
HPI Service [facility] Hospitalists Consult Requested By Dr. Quesada Reason for Consult medical management Primary Care Physician Jamar Saab MD Diagnoses: History of Present Illness 72yo female with a history of HLD, OA s/p bilateral TKA, GERD and paranoid schizophrenia who presents to [facility] for a revision of her left knee. [facility] was consulted for medical management. She states she was at home and fell but didn't think anything of it until she has pain and her knee was twisted inward. She is POD #1 of her knee revision. She states she is having mild throbbing intermittent pain, worse with movement but better with Tylenol, no radiation or associated systems. Review of Systems Except as stated in HPI: all other systems reviewed are Neg Past Family Social History Allergies: Coded Allergies: No Known Allergies (Verified Allergy, Unknown, 07/25/17) Past Medical History Hypertension, off BP meds x 5 years Dyslipidemia OA Paranoid schizophrenia GERD Past Surgical History Bilateral TKA C section x 3 Reported Medications Reported Meds & Active Scripts Active Coumadin (Warfarin) 5 Mg Tab 5 Mg PO DAILY PRN [place] (Hydrocodone-Acetaminophen) 5 Mg-325 Mg Tab 1-2 Tab PO Q6H PRN Reported Coumadin (Warfarin) 7.5 Mg Tab 7.5 Mg PO ONCE pt is to take one 7.5mg coumadin the night prior to surgery Famotidine 20 Mg Tab 20 Mg PO HS PRN Multiple Vitamin 1 Tab 1 Tab PO DAILY Caltrate 600+D Chew (Calcium Carbonate-Vitamin D Chew) 600-400 Mg-Unit Chew 1 Tab PO DAILY [place] Extra Strength (Acetaminophen) 500 Mg Tab 1,000 Mg PO TID PRN Benztropine (Benztropine Mesylate) 0.5 Mg Tab 2 Mg PO BID Aspirin Children's (Aspirin) 81 Mg Chew 81 Mg CHEW DAILY Atorvastatin (Atorvastatin Calcium) 10 Mg Tab 10 Mg PO HS [place] Carbonate 300 Mg Tab 300 Mg PO BID Risperdal (Risperidone) 3 Mg Tab 3 Mg PO Q12HR Active Ordered Medications Current Medications Medications (Trade) Dose Ordered Sig/Evelyn Route Start Time Stop Time Status Last Admin (Hibiclens 4% Top Soln) 1 applic UNSCH X1 TOPICAL 07/25/17 11:45 07/28/17 11:44 07/25/17 12:15 Vancomycin HCl 1000 mg/Sodium Chloride 250 ml @ 250 mls/hr PROGRAM ADMIN IV 07/25/17 11:45 07/28/17 11:44 Ropivacaine 24.63 ml/Ketorolac Tromethamine 30 mg/Epinephrine HCl 0.5 mg/ Clonidine 80 mcg/ Sodium Chloride 100 ml @ 200 mls/hr UNSCH X1 P-ARTICULR 07/25/17 12:00 07/28/17 18:00 07/25/17 16:29 Cefazolin Sodium/ Dextrose 50 ml @ 100 mls/hr PROGRAM ADMIN IV 07/25/17 12:00 07/28/17 11:59 07/25/17 15:45 Lactated Ringer's 1,000 ml @ 30 mls/hr Q24H PRN IV 07/25/17 12:15 07/28/17 12:14 07/25/17 12:30 Sodium Chloride 500 ml @ 30 mls/hr [id number] PRN IV 07/25/17 12:15 07/28/17 12:14 (Lopressor) 25 mg PROGRAM ADMIN PRN PO 07/25/17 12:15 07/28/17 12:14 (Betadine 5% Antisepsis Kit) 1 applic PROGRAM ADMIN PRN EACH NARE 07/25/17 12:15 07/28/17 12:14 07/25/17 12:40 (Chlorhexidine 2% Cloth) 3 pack PROGRAM ADMIN PRN TOPICAL 07/25/17 12:15 07/28/17 12:14 07/25/17 12:00 (Lipitor) 10 mg HS PO 07/25/17 21:00 07/25/17 23:06 (Cogentin) 2 mg BID PO 07/25/17 21:00 07/26/17 09:18 (Pepcid) 20 mg HS PRN PO 07/25/17 17:30 (Lithotabs) 300 mg BID PO 07/25/17 21:00 07/26/17 09:18 (risperDAL) 3 mg Q12HR PO 07/25/17 21:00 07/26/17 09:18 Lactated Ringer's 1,000 ml @ 80 mls/hr [id number] IV 07/25/17 18:00 07/25/17 19:00 (Morphine Inj) 4 mg Q3H PRN IV 07/25/17 19:15 (Zofran Inj) 4 mg Q6H PRN IVP 07/25/17 17:30 (Mag-Al Plus Susp Liq) 30 ml Q6H PRN PO 07/25/17 17:30 07/26/17 09:18 (Ambien) 5 mg HS PRN PO 07/25/17 17:30 ([place] 5-325 Mg) 1 tab Q4H PRN PO 07/25/17 17:30 07/25/17 23:07 ([place] 5-325 Mg) 2 tab Q4H PRN PO 07/25/17 17:30 Miscellaneous Information ALL NURSING DEPARTME... UNSCH PRN .XX 07/25/17 19:15 07/26/17 19:14 (Dulcolax Supp) 10 mg ONCE PRN RECTAL 07/26/17 07:15 07/29/17 07:14 (Tylenol) 650 mg Q4H PRN PO 07/26/17 07:15 (Miralax) 17 gm ONCE PRN PO 07/26/17 07:45 07/29/17 07:44 Family History Mother, pancreatic cancer Patient did not know her father Social History She denies any tobacco use history. She reports occasional EtOH consumption of 1-2 beers/month. She denies any illicit drug use. She lives with her daughter. Physical Exam Vital Signs Vital Signs Date Time Temp Pulse Resp B/P (MAP) Pulse Ox O2 Delivery O2 Flow Rate FiO2 07/26/17 08:00 97.9 62 16 120/66 (84) 96 07/26/17 04:00 98.1 90 18 110/65 (80) 95 07/26/17 00:00 98.0 82 18 131/71 (91) 96 07/25/17 20:00 97.7 72 18 138/75 (96) 98 07/25/17 19:45 67 20 121/71 (88) 100 Nasal Cannula 2 07/25/17 19:15 70 20 124/78 (93) 100 Nasal Cannula 2 07/25/17 18:15 71 20 136/73 (94) 100 Nasal Cannula 2 07/25/17 18:00 69 20 138/70 (92) 100 Nasal Cannula 2 07/25/17 17:45 71 20 140/76 (97) 100 Nasal Cannula 2 07/25/17 17:30 76 20 136/75 (95) 100 Nasal Cannula 2 07/25/17 17:18 97.5 91 20 137/70 (92) 95 Nasal Cannula 2 07/25/17 13:05 66 07/25/17 13:05 100 Nasal Cannula 2 07/25/17 12:33 98.0 68 20 127/74 (91) 96 Physical Exam GENERAL: This is a well-nourished, well-developed patient, in no apparent distress. SKIN: No rashes, ecchymoses or lesions. Cool and dry. HEAD: Atraumatic. Normocephalic. EYES: Pupils equal round and reactive. ENT: Nose without bleeding, purulent drainage or septal hematoma. Airway patent. NECK: Trachea midline. No JVD or lymphadenopathy. Supple, nontender, no meningeal signs. CARDIOVASCULAR: Regular rate and rhythm without murmurs, gallops, or rubs. RESPIRATORY: Clear to auscultation. Breath sounds equal bilaterally. No wheezes , rales, or rhonchi. GASTROINTESTINAL: Abdomen soft, non-tender, nondistended. No guarding. MUSCULOSKELETAL: Extremities without clubbing, cyanosis, or edema. left knee tenderness. No calf tenderness. NEUROLOGICAL: Awake and alert. Motor and sensory grossly within normal limits. 4out of 5 muscle strength in all muscle groups. Normal speech. Laboratory Laboratory Tests Test 07/26/17 04:05 White Blood Count 8.9 Red Blood Count 3.87 Hemoglobin 10.6 Hematocrit 33.2 Mean Corpuscular Volume 86.0 Mean Corpuscular Hemoglobin 27.5 Mean Corpuscular Hemoglobin Concent 31.9 Red Cell Distribution Width 15.5 Platelet Count 252 Mean Platelet Volume 7.9 Neutrophils (%) (Auto) 90.1 Lymphocytes (%) (Auto) 5.8 Monocytes (%) (Auto) 4.0 Eosinophils (%) (Auto) 0.0 Basophils (%) (Auto) 0.1 Neutrophils # (Auto) 8.0 Lymphocytes # (Auto) 0.5 Monocytes # (Auto) 0.4 Eosinophils # (Auto) 0.0 Basophils # (Auto) 0.0 CBC Comment DIFF FINAL Differential Comment Prothrombin Time 11.6 Prothromb Time International Ratio 1.1 Blood Urea Nitrogen 15 Creatinine 0.95 Random Glucose 111 Total Protein 6.3 Albumin 3.1 Calcium Level 8.7 Phosphorus Level 3.1 Magnesium Level 2.2 Alkaline Phosphatase 72 Aspartate Amino Transf (AST/SGOT) 12 Alanine Aminotransferase (ALT/SGPT) 19 Total Bilirubin 0.3 Sodium Level 143 Potassium Level 4.4 Chloride Level 113 Carbon Dioxide Level 22.3 Anion Gap 8 Estimat Glomerular Filtration Rate 70 Free Thyroxine 0.84 Thyroid Stimulating Hormone 3rd Gen 1.620 Result Diagram: 07/26/17 0405 07/26/17 0405 Imaging Last Impressions Knee X-Ray 07/25/17 1721 Signed Impressions: Service Date/Time: July 18:49 - CONCLUSION: Satisfactory postop appearance Sergei Alfred MD Assessment and Plan Problem List: (1) Failed total knee arthroplasty ICD Code: T84.018A - Broken internal joint prosthesis, other site, initial encounter; Z96.659 - Presence of unspecified artificial knee joint (2) Paranoid schizophrenia ICD Code: F20.0 - Paranoid schizophrenia Status: Chronic (3) Hyperlipidemia ICD Code: E78.5 - Hyperlipidemia Status: Chronic Assessment and Plan 72yo female with a history of HLD, OA s/p bilateral TKA, GERD and paranoid schizophrenia who presents to [facility] for a revision of her left knee. Knee revision due to failed total knee arthroplasty Revision with Poly exchange on 07/25 -Anticoagulation and pain medication per orthopedics -Cont anticoagulation -WBAT per ortho Schizophrenia, chronic -Cont home medications HLD, chronic -Cont home medications -Heart healthy diet DVT prophylaxis: Coumadin Discussed Condition With Discharge per ortho, possibly Saturday Problem Qualifiers (1) Failed total knee arthroplasty: Qualified Codes: T84.018D - Broken internal joint prosthesis, other site, subsequent encounter; Z96.659 - Presence of unspecified artificial knee joint Sivan Gill Jul 26, 2017 12:21
[2017-07-26] MEDS: ACETAMINOPHEN/HYDROcodone 325 MG/5 MG TAB PO PRN ×2 (12:22→20:06)
[2017-07-26 14:24] LABS: HEMOGLOBIN A1C 5.4 % (4.3-6.0)
[2017-07-26 16:00] VITALS: BP 118/58; PULSE 77; RESP 16; TEMP 98; O2SAT 100
[2017-07-26 20:00] VITALS: BP 106/72; PULSE 78; RESP 18; TEMP 98.5; O2SAT 98
[2017-07-26] MEDS: ATORVASTATIN 10 MG TAB PO SCH (20:03)
[2017-07-27 00:07] VITALS: BP 129/61; PULSE 83; RESP 18; TEMP 98.2; O2SAT 99
[2017-07-27 05:58] LABS: AUTOMATED NEUTROPHIL # 5.5 TH/MM3 (1.8-7.7); BASOPHIL % 0.4 % (0.0-2.0); EOSINOPHIL # 0.2 TH/MM3 (0-0.4); EOSINOPHIL % 2.2 % (0.0-4.0); HEMATOCRIT 33.1 % (35.0-46.0); HEMOGLOBIN 10.6 GM/DL (11.6-15.3); LYMPH % 18.4 % (9.0-44.0); LYMPHOCYTE # 1.4 TH/MM3 (1.0-4.8); MEAN CELL VOLUME 86.5 FL (80.0-100.0); MEAN CORPUSCULAR HEMOGLOBIN 27.7 PG (27.0-34.0); MONO % 8.7 % (0.0-8.0); MONOCYTE # 0.7 TH/MM3 (0-0.9); NEUT % 70.3 % (16.0-70.0); PLATELET COUNT 241 TH/MM3 (150-450); RED BLOOD COUNT 3.82 MIL/MM3 (4.00-5.30); RED CELL DISTRIBUTION WIDTH 15.8 % (11.6-17.2); WHITE BLOOD COUNT 7.8 TH/MM3 (4.0-11.0)
[2017-07-27 06:03] LABS: INTERNATIONAL NORMALIZED RATIO 1.1 RATIO
[2017-07-27 06:11] LABS: BICARBONATE 25.4 MEQ/L (21.0-32.0); CALCIUM 8.5 MG/DL (8.5-10.1); CREATININE 0.93 MG/DL (0.50-1.00)
[2017-07-27] MEDS: LACTATED RINGER'S 1000 ML INJ 1,000 ML IV SCH ×2 (07:30→20:00)
[2017-07-27 08:00] VITALS: BP 111/56; PULSE 74; RESP 16; TEMP 98; O2SAT 99
[2017-07-27] MEDS: BENZTROPINE MESYLATE 1 MG TAB PO SCH ×2 (09:08→20:41)
[2017-07-27] MEDS: ACETAMINOPHEN/HYDROcodone 325 MG/5 MG TAB PO PRN (09:08)
[2017-07-27] MEDS: LITHIUM CARBONATE 300 MG TAB PO SCH ×2 (09:08→20:40)
[2017-07-27] MEDS: risperiDONE 3 MG TAB PO SCH ×2 (09:08→20:40)
[2017-07-27 12:00] VITALS: BP 160/82; PULSE 80; RESP 16; TEMP 98.3; O2SAT 100
--- NOTE | 2017-07-27 12:27 | HHI.PR ---
Subjective Remarks Pt doing ok, pain controlled. no nausea or vomiting. concerned about putting too much weight on her knee. Asks if it is ok to do so or to move the knee Objective Vitals Vital Signs Date Time Temp Pulse Resp B/P (MAP) Pulse Ox O2 Delivery O2 Flow Rate FiO2 07/27/17 08:00 98.0 74 16 111/56 (74) 99 07/27/17 00:07 98.2 83 18 129/61 (83) 99 07/26/17 20:00 98.5 78 18 106/72 (83) 98 07/26/17 16:00 98.0 77 16 118/58 (78) 100 I/O 07/26/17 07/26/17 07/26/17 07/27/17 07/27/17 07/27/17 07:00 15:00 23:00 07:00 15:00 23:00 Intake Total 240 ml 600 ml 420 ml Output Total 5 ml Balance 240 ml 600 ml 415 ml Intake Oral 240 ml 600 ml 420 ml Output Urine Total 5 ml # Voids 2 3 # Bowel Movements 0 0 Result Diagram: 07/27/17 0459 07/27/17 0459 Imaging Last Impressions Knee X-Ray 07/25/17 1721 Signed Impressions: Service Date/Time: July 18:49 - CONCLUSION: Satisfactory postop appearance Sergei Alfred MD Objective Remarks GENERAL: sitting up on recliner CARDIOVASCULAR: Regular rate and rhythm without murmurs RESPIRATORY: Clear to auscultation. Breath sounds equal bilaterally. No wheezes GASTROINTESTINAL: Abdomen soft, non-tender, nondistended. MUSCULOSKELETAL: dressing over the left knee d/c/i NEUROLOGICAL: Awake and alert. Normal speech. A/P Problem List: (1) Failed total knee arthroplasty ICD Code: T84.018A - Broken internal joint prosthesis, other site, initial encounter; Z96.659 - Presence of unspecified artificial knee joint (2) Paranoid schizophrenia ICD Code: F20.0 - Paranoid schizophrenia Status: Chronic (3) Hyperlipidemia ICD Code: E78.5 - Hyperlipidemia Status: Chronic Assessment and Plan 72yo female with a history of HLD, OA s/p bilateral TKA, GERD and paranoid schizophrenia who presents to [facility] for a revision of her left knee. Knee revision due to failed total knee arthroplasty Revision with Poly exchange on 07/25 -Anticoagulation and pain medication per orthopedics -WBAT per ortho Schizophrenia, chronic -Cont home medications HLD, chronic -Cont home medications -Heart healthy diet DVT prophylaxis: Coumadin Discharge Planning Medically doing well. Cleared for discharge from a medical standpoint Problem Qualifiers (1) Failed total knee arthroplasty: Qualified Codes: T84.018D - Broken internal joint prosthesis, other site, subsequent encounter; Z96.659 - Presence of unspecified artificial knee joint Myah Gleason MD Jul 27, 2017 12:27
[2017-07-27 16:00] VITALS: BP 122/69; PULSE 81; RESP 16; TEMP 98.7; O2SAT 96
[2017-07-27] MEDS: ACETAMINOPHEN 325 MG TAB PO PRN ×2 (16:49→20:42)
[2017-07-27] MEDS ORDERED: WARFARIN SOD 5 MG TAB PO SCH (18:30)
[2017-07-27] MEDS ORDERED: WARFARIN SOD 5 MG TAB PO ONE (18:30)
--- NOTE | 2017-07-27 20:17 | PD.ORT.PN ---
Subjective Subjective Remarks no CP/SOB Objective Vitals Vital Signs Date Time Temp Pulse Resp B/P (MAP) Pulse Ox O2 Delivery O2 Flow Rate FiO2 07/27/17 16:00 98.7 81 16 122/69 (86) 96 07/27/17 12:00 98.3 80 16 160/82 (108) 100 07/27/17 08:00 98.0 74 16 111/56 (74) 99 07/27/17 00:07 98.2 83 18 129/61 (83) 99 I/O 07/26/17 07/26/17 07/26/17 07/27/17 07/27/17 07/27/17 07:00 15:00 23:00 07:00 15:00 23:00 Intake Total 240 ml 600 ml 420 ml 600 ml Output Total 5 ml Balance 240 ml 600 ml 415 ml 600 ml Intake Oral 240 ml 600 ml 420 ml 600 ml Output Urine Total 5 ml # Voids 2 3 4 # Bowel Movements 0 0 Result Diagram: 07/27/17 0459 07/27/17 0459 Other Results Laboratory Tests Test 07/27/17 04:59 Prothromb Time International Ratio 1.1 RATIO Prothrombin Time 11.0 SEC (9.8-11.6) Imaging Last 24 hours Impressions Knee X-Ray 07/25/17 1721 Signed Impressions: Service Date/Time: July 18:49 - CONCLUSION: Satisfactory postop appearance Sergei Alfred MD Objective Remarks left knee dressing dry and intact canvas knee splint in place +NVI no calf tenderness Assessment & Plan Assessment and Plan POD # 2 s/p L rev TKA- poly exchange no issues, afebrile, no CP/SOB PT-WBAT low dose coumadin for dvt prop, order for sliding scale in physical chart rx for coumadin 5 mg in chart, look at INR on discharge to make sure appropriate dosage anticipate discharge to SNF Jordan Epps Jr., MD Jul 27, 2017 20:16
[2017-07-27 20:20] VITALS: BP 130/65; PULSE 56; RESP 17; TEMP 98.9; O2SAT 95
[2017-07-27] MEDS: ATORVASTATIN 10 MG TAB PO SCH (20:40)
[2017-07-28 00:37] VITALS: BP 115/57; PULSE 68; RESP 17; TEMP 98.8; O2SAT 96
[2017-07-28 08:00] VITALS: BP 129/64; PULSE 73; RESP 16; TEMP 98.2; O2SAT 100
[2017-07-28] MEDS: LACTATED RINGER'S 1000 ML INJ 1,000 ML IV SCH ×2 (08:30→21:00)
[2017-07-28] MEDS: ACETAMINOPHEN 325 MG TAB PO PRN ×3 (08:46→21:43)
[2017-07-28] MEDS: risperiDONE 3 MG TAB PO SCH ×2 (08:46→21:35)
[2017-07-28] MEDS: BENZTROPINE MESYLATE 1 MG TAB PO SCH ×2 (08:46→21:35)
[2017-07-28] MEDS: LITHIUM CARBONATE 300 MG TAB PO SCH ×2 (08:47→21:35)
[2017-07-28 13:05] LABS: PROTHROMBIN TIME - PATIENT 10.2 SEC (9.8-11.6)
--- NOTE | 2017-07-28 14:15 | PD.ORT.PN ---
Subjective Subjective Remarks no CP/SOB Objective Vitals Vital Signs Date Time Temp Pulse Resp B/P (MAP) Pulse Ox O2 Delivery O2 Flow Rate FiO2 07/28/17 08:00 98.2 73 16 129/64 (85) 100 07/28/17 00:37 98.8 68 17 115/57 (76) 96 07/27/17 21:37 Room Air 07/27/17 21:32 21 07/27/17 21:21 18 07/27/17 20:20 98.9 56 17 130/65 (86) 95 07/27/17 16:00 98.7 81 16 122/69 (86) 96 I/O 07/27/17 07/27/17 07/27/17 07/28/17 07/28/17 07/28/17 07:00 15:00 23:00 07:00 15:00 23:00 Intake Total 420 ml 600 ml 360 ml Output Total 5 ml Balance 415 ml 600 ml 360 ml Intake Oral 420 ml 600 ml 360 ml Output Urine Total 5 ml # Voids 4 3 # Bowel Movements 0 1 Result Diagram: 07/27/17 0459 07/27/17 0459 Other Results Laboratory Tests Test 07/28/17 11:59 Prothromb Time International Ratio 1.0 RATIO Prothrombin Time 10.2 SEC (9.8-11.6) Imaging Last 24 hours Impressions Knee X-Ray 07/25/17 1721 Signed Impressions: Service Date/Time: July 18:49 - CONCLUSION: Satisfactory postop appearance Sergei Alfred MD Objective Remarks left knee dressing dry and intact canvas knee splint in place +NVI no calf tenderness Assessment & Plan Assessment and Plan POD # 3 s/p L rev TKA- poly exchange no issues, afebrile, no CP/SOB PT-WBAT low dose coumadin for dvt prop, order for sliding scale in physical chart rx for coumadin 5 mg in chart, INR 1.0 anticipate discharge to SNF Jordan Epps Jr., MD Jul 28, 2017 14:15
[2017-07-28] MEDS ORDERED: WARFARIN SOD 5 MG TAB PO SCH (16:00)
--- NOTE | 2017-07-28 17:39 | HHI.PR ---
Subjective Remarks Patient has no complaints. Pain control. Denies any chest pain, shortness of breath, nausea or vomiting. Objective Vitals Vital Signs Date Time Temp Pulse Resp B/P (MAP) Pulse Ox O2 Delivery O2 Flow Rate FiO2 07/28/17 08:00 98.2 73 16 129/64 (85) 100 07/28/17 00:37 98.8 68 17 115/57 (76) 96 07/27/17 21:37 Room Air 07/27/17 21:32 21 07/27/17 21:21 18 07/27/17 20:20 98.9 56 17 130/65 (86) 95 I/O 07/27/17 07/27/17 07/27/17 07/28/17 07/28/17 07/28/17 07:00 15:00 23:00 07:00 15:00 23:00 Intake Total 420 ml 600 ml 360 ml Output Total 5 ml Balance 415 ml 600 ml 360 ml Intake Oral 420 ml 600 ml 360 ml Output Urine Total 5 ml # Voids 4 3 # Bowel Movements 0 1 Result Diagram: 07/27/17 0459 07/27/17 0459 Imaging Last Impressions Knee X-Ray 07/25/17 1721 Signed Impressions: Service Date/Time: July 18:49 - CONCLUSION: Satisfactory postop appearance Sergei Alfred MD Objective Remarks GENERAL: sitting up on recliner CARDIOVASCULAR: Regular rate and rhythm without murmurs RESPIRATORY: Clear to auscultation. Breath sounds equal bilaterally. No wheezes GASTROINTESTINAL: Abdomen soft, non-tender, nondistended. MUSCULOSKELETAL: dressing over the left knee d/c/i NEUROLOGICAL: Awake and alert. Normal speech. A/P Problem List: (1) Failed total knee arthroplasty ICD Code: T84.018A - Broken internal joint prosthesis, other site, initial encounter; Z96.659 - Presence of unspecified artificial knee joint (2) Paranoid schizophrenia ICD Code: F20.0 - Paranoid schizophrenia Status: Chronic (3) Hyperlipidemia ICD Code: E78.5 - Hyperlipidemia Status: Chronic Assessment and Plan 72yo female with a history of HLD, OA s/p bilateral TKA, GERD and paranoid schizophrenia who presents to [facility] for a revision of her left knee. Knee revision due to failed total knee arthroplasty Revision with Poly exchange on 07/25 -Anticoagulation and pain medication per orthopedics -WBAT per ortho Schizophrenia, chronic -Cont home medications HLD, chronic -Cont home medications -Heart healthy diet DVT prophylaxis: Coumadin Discharge Planning Medically doing well. Cleared for discharge from a medical standpoint Problem Qualifiers (1) Failed total knee arthroplasty: Qualified Codes: T84.018D - Broken internal joint prosthesis, other site, subsequent encounter; Z96.659 - Presence of unspecified artificial knee joint Myah Gleason MD Jul 28, 2017 17:39
[2017-07-28 18:58] VITALS: BP 126/72; PULSE 81; RESP 16; TEMP 98.2; O2SAT 99
[2017-07-28] MEDS: ATORVASTATIN 10 MG TAB PO SCH (21:35)
[2017-07-28 23:34] VITALS: BP 115/65; PULSE 82; RESP 17; TEMP 98.8; O2SAT 99
[2017-07-29 05:48] LABS: PROTHROMBIN TIME - PATIENT 10.6 SEC (9.8-11.6)
[2017-07-29 08:00] VITALS: BP 114/62; PULSE 85; RESP 18; TEMP 98.3; O2SAT 96
--- NOTE | 2017-07-29 08:02 | HHI.FF ---
Face to Face Verification Diagnosis: (1) Failed total knee arthroplasty Physical Therapy Gait training, Transfer training, bed to chair Knee: Total knee, Protocol: Left, Full weight bearing Right LE Weight Bearing: WB as tolerated Left LE Weight Bearing: WB as tolerated Nursing RN: 3 days/week x 2 weeks Nursing: Dressing changes Additional Instructions clean incision with alcohol and apply dry, sterile dressing Pt/INR q Saturday and , call/text results to Jimena CORRALES [phone] Goal INR 1.5-1.8 I have seen patient Soheila Linton on 07/29/17. My clinical findings support the need for the requested home health care services because: Limited ability to care for self High risk of falls I certify that my clinical findings support that this patient is homebound because: Unsteady gait/balance Tristan Quesada MD Jul 29, 2017 08:02
[2017-07-29] MEDS: risperiDONE 3 MG TAB PO SCH (08:38)
[2017-07-29] MEDS: LITHIUM CARBONATE 300 MG TAB PO SCH (08:38)
[2017-07-29] MEDS: BENZTROPINE MESYLATE 1 MG TAB PO SCH (08:38)
== END 2017-07-29 10:56 | disposition home health service (06) | DRG 488 ==
LOC: HSDI 11:23 → N06B 20:02
PROVIDERS: ADMIT Orthopaedic Surgery Orthopaedic Surgery of the Spine; ATTEND Orthopaedic Surgery Orthopaedic Surgery of the Spine
PROC: 0SPD09Z Removal of Liner from Left Knee Joint, Open Approach (ICD-10-PCS; 2017-07-25)
PROC: 3E0T3BZ Introduction of Anesthetic Agent into Peripheral Nerves and Plexi, Percutaneous Approach (ICD-10-PCS; 2017-07-25)
PROC: 0SUW09Z Supplement Left Knee Joint, Tibial Surface with Liner, Open Approach (ICD-10-PCS; principal; 2017-07-25 15:38)
DX: T84.099A Other mechanical complication of unspecified internal joint prosthesis, initial encounter (principal); F20.0 Paranoid schizophrenia; I10 Essential (primary) hypertension; E78.5 Hyperlipidemia, unspecified; K21.9 Gastro-esophageal reflux disease without esophagitis; W19.XXXA Unspecified fall, initial encounter; Y79.2 Prosthetic and other implants, materials and accessory orthopedic devices associated with adverse incidents; Z79.01 Long term (current) use of anticoagulants; Z96.651 Presence of right artificial knee joint
CPT/HCPCS: 73560; 76937; 80048; 80053; 83036; 83735; 84100; 84439; 84443; 85025; 85610; 86850; 86900; 86901; 86920; 94150; C1776; C9290; J0131; J0690; J0735; J1100; J1580; J1885; J2405; J2710; J2795; J3010; J7120